=== PATIENT | male | born 1940 | race Caucasian/White ===

== ENCOUNTER 2024-07-25 14:10 | Emergency (ER) | payer MEDICARE, SELFPAY ==
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
[2024-07-25 16:31] VITALS: BP 133/71
[2024-07-25 17:00] VITALS: BP 120/69
== END 2024-07-25 17:08 | disposition home or self-care (01) ==
LOC: EMR 14:10
PROVIDERS: EMERGENCY PHYSICIAN Student in an Organized Health Care Education/Training Program; FAMILY PHYSICIAN Family Medicine
DX: S00.81XA Abrasion of other part of head, initial encounter (principal); W19.XXXA Unspecified fall, initial encounter; F03.90 Unspecified dementia, unspecified severity, without behavioral disturbance, psychotic disturbance, mood disturbance, and anxiety; E78.5 Hyperlipidemia, unspecified; I25.10 Atherosclerotic heart disease of native coronary artery without angina pectoris; R47.01 Aphasia
CPT/HCPCS: 99284; 70450; 72125

== ENCOUNTER → 2025-01-22 09:36 | Outpatient (REF) | payer MEDICARE, SELFPAY ==
[2025-01-22 11:57] LABS: ALT (SGPT) 15 U/L (0-50); AST (SGOT) 22 U/L (17-59); Albumin 4.4 g/dl (3.5-5.0); Alkaline Phosphatase 56 U/L (38-126); Blood Urea Nitrogen 23 mg/dl (9-20); Calcium 9.7 mg/dl (8.4-10.2); Carbon Dioxide 32 mmol/L (22-30); Chloride 105 mmol/L (98-107); Glucose 87 mg/dl (70-99); HDL Cholesterol 57 mg/dl; LDL Cholesterol, Calculated 56 mg/dl; Potassium 4.6 mmol/L (3.5-5.1); Sodium 141 mmol/L (135-145); Total Protein 6.9 g/dl (6.3-8.2); Very Low Density Lipoprotein 14 mg/dl (0-30); eGFR > 60.00
[2025-01-22 12:27] LABS: TSH 3.40 uIU/ml (0.47-4.68)
[2025-01-22 13:55] LABS: Hematocrit 42.0 % (39.0-52.0); Hemoglobin 13.7 g/dL (13.0-18.0); Mean Corp Hgb Conc. 32.6 g/dL (33.0-37.0); Mean Corpuscular Volume 97.0 fL (80.0-94.0); Nucleated Red Blood Cells % 0 % (-); Platelet Count 178 10^3/uL (130-400); Red Cell Dist. Width 12.8 % (11.5-14.5)
== END ==
LOC: OLABBH 09:36
PROVIDERS: ATTENDING PHYSICIAN Hospitalist
DX: I10 Essential (primary) hypertension (principal); E78.5 Hyperlipidemia, unspecified; F07.0 Personality change due to known physiological condition
CPT/HCPCS: 36415; 80053; 80061; 84439; 84443; 85025